=== PATIENT | female | born 1975 | race Caucasian/White ===

== ENCOUNTER 2019-03-18 05:54 | Day surgery (SDC) | payer BC ==
[~2019-03-18] VITALS: Ht 154.9 cm; Wt 93.6 kg
[2019-03-18] VITALS (16 sets, daily range): BP systolic 103–154; BP diastolic 58–95; PULSE 82–110; RESP 13–25; Ht 154.9 cm; Wt 93.6 kg
[2019-03-18] MEDS ORDERED: CEFAZOLIN 2 GM/50 ML (PMX) 50 ML IVPB ONE (07:00)
[2019-03-18] MEDS ORDERED: SOD CHLORIDE 0.9% 1,000 ML IV SCH (07:00)
--- NOTE | 2019-03-18 07:25 | PREAC ---
Date/Time of Note Date/Time of Note DATE: 03/18/19 TIME: 07:21 Anesthesia Eval and Record Evaluation Time Pre-Procedure Interview DATE: 03/18/19 TIME: 07:21 Age 43 Sex female NPO: 8 hrs Preoperative diagnosis ln left neck Planned procedure ln biopsy left neck Past Medical History Past Medical History: Includes Musculoskeletal: Osteoarthritis GI: Obesity Surgery & Anesthesia Issues No known issue Meds Anticoagulation: No Beta Darryl within 24 hr: No Reason Beta Darryl not given: Pt. not on B-Darryl No Active Prescriptions or Reported Meds Current Medications Cefazolin Sodium/ Dextrose 50 ml @ 100 mls/hr ONCE ONCE IVPB ; Start 03/18/19 at 07:00; Stop 03/18/19 at 07:29 Sodium Chloride 1,000 ml @ 75 mls/hr [id number] IV ; Start 03/18/19 at 07:00; Stop 03/18/19 at 20:19 Meds reviewed: Yes Allergies Coded Allergies: No Known Allergy (Unverified , 03/18/19) Allergies Reviewed: No Labs/Studies Labs Reviewed: Reviewed by anesthesiologist test: N/A Pre-procedure Exam Last vitals Vital Signs Date Temp Pulse Resp B/P (MAP) Pulse Ox O2 O2 Flow FiO2 Time Delivery Rate 03/18/19 98.5 86 16 112/58 98 Room Air 06:45 (76) Airway: Adequate mouth opening Mallampati: Mallampati II Teeth: Normal Lung: Normal Heart: Normal ASA Physical Status ASA physical status: 3 Emergency: None Planned Anesthetic General/MAC: LMA Pre-operative Attestations Prior to commencing anesthesia and surgery, the patient was re-evaluated, there was verification of: *The patient's identity *The results of appropriate recent lab work and preoperative vital signs *The above evaluation not changing prior to induction *Anesthetic plan, risk benefits, alternative and complications discussed with patient/family; questions answered; patient/family understands, accepts and wishes to proceed. Copy Lathe Operator used TINY RUBIO MD Mar 18, 2019 07:25
[2019-03-18] MEDS ORDERED: BUPIVACAINE 0.25% (MPF) 30 ML INJ ONE (07:42)
[2019-03-18] MEDS ORDERED: PROPOFOL 20 ML ONE (08:34)
[2019-03-18] MEDS ORDERED: HYDROmorphONE 2 MG/ML SYG ONE (08:34)
[2019-03-18] MEDS ORDERED: SUCCINYLCHOLINE CHLORIDE 100 MG/5 ML SYG IV ONE (08:34)
[2019-03-18] MEDS ORDERED: FENTAnyl 50 MCG/ML VIAL ONE (08:35)
[2019-03-18] MEDS ORDERED: ROCURONIUM 50 MG INJ ONE (09:02)
[2019-03-18] MEDS ORDERED: SUGAMMADEX SODIUM 200 MG/2 ML VIAL IV ONE (09:25)
[2019-03-18] MEDS ORDERED: hydrALAzine 20 MG INJ IV PRN (09:30)
[2019-03-18] MEDS ORDERED: LABETALOL HCL 20MG INJ IV PRN (09:30)
[2019-03-18] MEDS ORDERED: ONDANSETRON 4 MG INJ IV PRN (09:30)
[2019-03-18] MEDS ORDERED: METOCLOPRAMIDE 10 MG INJ IV PRN (09:30)
[2019-03-18] MEDS ORDERED: MEPERIDINE 25 MG INJ IV PRN (09:30)
[2019-03-18] MEDS ORDERED: EPHEDrine SULFATE 50 MG/5 ML SYG IV PRN (09:30)
[2019-03-18] MEDS ORDERED: DIPHENHYDRAMINE 50 MG INJ IV PRN (09:30)
[2019-03-18] MEDS ORDERED: HYDROmorphONE 1 MG/5 ML IV SYRINGE IV PRN ×2 (09:30)
--- NOTE | 2019-03-18 09:47 | PAC ---
Date/Time of Note Date/Time of Note DATE: 03/18/19 TIME: 09:47 Post-Anesthesia Notes Post-Anesthesia Note Last documented vital signs Vital Signs Date Temp Pulse Resp B/P (MAP) Pulse Ox O2 O2 Flow FiO2 Time Delivery Rate 03/18/19 98.5 86 16 112/58 98 Room Air 06:45 (76) Activity: WNL Respiratory function: WNL Cardiovascular function: WNL Mental status: Baseline Pain reasonably controlled: Yes Hydration appropriate: Yes Nausea/Vomiting absent: Yes TINY RUBIO MD Mar 18, 2019 09:47
--- NOTE | 2019-03-18 09:55 | OPR ---
Date/Time of Note Date/Time of Note DATE: 03/18/19 TIME: 09:50 Operative Report Procedure Date: Mar 18, 2019 Preoperative Diagnosis lymphadenopathy Postoperative Diagnosis same Operation/Procedure Performed 1. excisional biopsy of right neck lymph node 2. localized adjacent tissue transfer with the use of skin flaps 14 sq cm defect of the right neck 3. therapeutic injection of subcutaneous local anesthesia Surgeon see signature line Business Office Assistant none Anesthesia Type: general Estimated Blood Loss: 10 - 50 ml's Transfusion none Specimen right neck lymph node Grafts/Implants none Complications none Pt Condition Post Procedure: stable Indications This is a 43-year-old female with persistent lymphadenopathy. She had ultrasound imaging showing great lymphadenopathy in the left neck. She presen dominick today for lymph node biopsy however on clinical exam she did not have any lymphadenopathy in the left neck at all and nothing was palpable. She did have clinically palpable firmness in the right neck. Additionally due to her body habitus with a BMI of 39 her exam was difficult of the neck. Decision was made to do a lymph node biopsy of the right neck due to nonspecific findings on core needle biopsy of lymph nodes. Risks alternatives benefits and percent were discussed the patient. Potential complications including but not limited to bleeding infection nondiagnostic finding on biopsy need for additional biopsies and pain and potential nerve injury were discussed the patient. Patient expresses understanding and consents to the operation. Procedure Description Patient is taken to the OR and prepped and draped in usual sterile fashion. Surgical time was performed. IV antibiotics given. Right neck oblique incision made with a 15 blade. Dissection with cautery could onto the muscular layer. The muscular bellies were dissected out and a small lymph node is identified. Intraoperative consult with pathology was performed. Preliminary results showed reactive lymph node but no obvious malignancy. This was then sent for more extensive pathological evaluation. Good hemostasis established in the surgical field. Due to tissue defect localization just transfer with these discomforts was performed. Multilayer closure with interrupted 0 Vicryl running 4 Monocryl. Therapeutic contains local anesthesia was injected at the incision site. Steri-Strips and dry dressings were applied. Safia ANDERSON Mar 18, 2019 09:55
[2019-03-18] MEDS ORDERED: HYDROCODONE/APAP (5/325) TAB PO ONE (10:00)
[2019-03-18] MEDS ORDERED: ONDANSETRON 4 MG INJ ONE (10:38)
== END 2019-03-18 11:20 | disposition home or self-care (01) ==
LOC: SDS 05:54
PROVIDERS: ATTEND Surgery
DX: R59.0 Localized enlarged lymph nodes (principal)
CPT/HCPCS: 14041; 38500; 87070; 87075; 87102; 87116; 88307; J0690; J1170; J2405; J3010; Z7512; Z7610